=== PATIENT | female | born 1985 | race Caucasian/White ===

== ENCOUNTER 2018-03-27 16:06 | Day surgery (SDC) | payer BC, SELFPAY ==
[2018-03-27 16:52] VITALS: BP 132/82; TEMP 98.5; BMI 50.6
[2018-03-27 17:00] LABS: Amnisure Test No Membranes Rupture (No Rupture)
[2018-03-27 17:01] LABS: Amnisure Internal Control QC ACCEPTABLE (ACCEPTABLE)
--- NOTE | 2018-03-27 18:15 | PDOC.LDHP ---
Labor and Delivery H&P Chief complaint: loss of fluid HPI: 32 y/o G1 at 37w5d, patient of Dr. Srinivasan, presents with LOF x 1 week. Patient reports she has felt like her panties were constantly damp. Has not had any gushes but has needed to use a panty liner. Denies VB, ctx, or decreased FM. ROS neg for HEENT, CV, pulm, GI, , neuro, psych, skin, musculoskeletal, or constitutional symptoms other than mentioned above. OB History Details: First Current complications: none Current medications: pre-chandrakant vitamins Previous surgical history: none Allergies/Adverse Reactions: Allergies Allergy/AdvReac Type Severity Reaction Status Date / Time No Known Allergies Allergy Verified 03/27/18 16:46 Social history: none - Physical Exam Vital signs reviewed and normal: yes General: NAD, resting Lungs: nonlabored breathing Abdomen: gravid Extremeties: no edema FHT: category 1 (135, mod variability, + accels, no decels) [place] contractions every: occasional - Vaginal Exam cm dilated: 0 Effacement: 50% Station: -2 - Assessment 32 y/o G1 at 37w5d with no e/o SROM with neg SSE and neg amnisure. status reassuring with reactive NST. - Plan -: D/c home with precautions. Advised to keep all appointments.
== END 2018-03-27 17:40 | disposition home or self-care (01) ==
LOC: L&D/OP 16:06
PROVIDERS: ATTEND Obstetrics & Gynecology
DX: O99.89 Other specified diseases and conditions complicating pregnancy, childbirth and the puerperium (principal); N89.8 Other specified noninflammatory disorders of vagina; Z3A.37 37 weeks gestation of pregnancy
CPT/HCPCS: 84112; 99283

== ENCOUNTER 2018-04-06 17:30 | Inpatient (IN) | payer BC ==
[~2018-04-06 17:30] MED LIST: Bupivacaine/Epinephrine 0.5% 10 ML VIAL ONE; Lidocaine 2% MPF 10 ML AMP (For Epidural Use) ONE
[2018-04-06 20:23] VITALS: BMI 51.3
[2018-04-06] MEDS ORDERED: Ondansetron PF 4 MG/2 ML Vial IVP PRN (20:23)
[2018-04-06] MEDS ORDERED: HYDROcodone/Acetaminophen 5/325 mg Tablet PO PRN ×2 (20:23)
[2018-04-06] MEDS ORDERED: Ibuprofen 800 MG TAB PO PRN (20:23)
[2018-04-06] MEDS ORDERED: NS w/ Oxytocin 10 units 500 ML IV SCH (20:23)
[2018-04-06] MEDS ORDERED: Docusate 100 MG CAP PO PRN (20:23)
[2018-04-06] MEDS ORDERED: Penicillin G Potassium 5 MILL.UNITS in Sodium Chloride 0.9% 100 ML IVPB SCH (20:23)
[2018-04-06] MEDS ORDERED: NS / Oxytocin 40 units/1000ml 1,000 ML IV PRN (20:23)
[2018-04-06] MEDS ORDERED: Lidocaine 1% (PF) 30 ML VIAL SC PRN (20:23)
[2018-04-06] MEDS ORDERED: Butorphanol Tartrate 1 MG/ML VIAL SLOW IVP PRN (20:23)
[2018-04-06] MEDS ORDERED: Diphenoxylate HCl/Atropine Tablet PO PRN ×2 (20:23)
[2018-04-06] MEDS ORDERED: Promethazine HCl 25 MG/ML VIAL IM PRN (20:23)
[2018-04-06] MEDS ORDERED: Acetaminophen 500 MG TAB PO PRN (20:23)
[2018-04-06] MEDS ORDERED: Misoprostol 200 MCG TAB PR PRN (20:23)
[2018-04-06] MEDS: Lactated Ringer's 1,000 ML IV SCH (21:05)
[2018-04-06 21:16] LABS: Hemoglobin 11.4 g/dL (12.0-16.0); Mean Corpuscular HGB CONC 32.6 g/dL (32.0-36.0); Mean Corpuscular Hemoglobin 29.1 pg (27.0-31.0); Mean Corpuscular Volume 89.5 fL (78.0-98.0); Mean Platelet Volume 7.2 fL (7.4-10.4); Platelet Count 325 thou/uL (130-400); RBC Distribution Width 13.3 % (11.5-14.5); Red Blood Cell (RBC) Count 3.92 mill/uL (4.20-5.40)
[2018-04-06] MEDS: Misoprostol 100 MCG TAB VAG SCH (21:29)
[2018-04-06 21:59] LABS: Syphilis Antibody Nonreactive (Nonreactive); Syphilis Antibody Index 0.04 S/CO (<1.00 Non-Reactive)
[2018-04-06 23:38] LABS: Hep B Surf Ag Non-Reactive S/CO (NonReactive)
[2018-04-07] MEDS: Misoprostol 100 MCG TAB VAG SCH ×2 (00:56→04:13)
[2018-04-07] MEDS: Penicillin G 2.5 MILL.units 2.5 MILL.UNITS in Premix Bag 1 BAG IVPB SCH ×5 (01:47→13:41)
[2018-04-07] MEDS: Lactated Ringer's 1,000 ML IV SCH ×2 (05:30→12:21)
[2018-04-07] MEDS ORDERED: NS w/ Oxytocin 10 units 500 ML ONE (07:56)
[2018-04-07] MEDS: NS w/ Oxytocin 10 units 500 ML IV SCH (08:17)
[2018-04-07] MEDS ORDERED: Fentanyl 4 mcg/Bup 0.1% Cadd 100 ML ONE ×2 (08:24→16:26)
[2018-04-07] MEDS ORDERED: Penicillin G 2.5 MILL.units 50 ML ONE (09:03)
[2018-04-07] MEDS ORDERED: Lidocaine 1.5% w/Epi 1:200K 30 ML VIAL (Epid Use) ONE (09:47)
[2018-04-07] MEDS ORDERED: Ondansetron PF 4 MG/2 ML Vial IVP PRN ×2 (10:08→19:23)
[2018-04-07] MEDS ORDERED: Eucerin (Mineral Oil/Petrolatum,White) 30 gm Jar TOP PRN ×2 (10:08→19:23)
[2018-04-07] MEDS ORDERED: Lactated Ringer's 500 ML IV PRN (10:08)
[2018-04-07] MEDS ORDERED: Acetaminophen 325 MG TAB PO PRN (10:08)
[2018-04-07] MEDS ORDERED: Naloxone HCl 0.4 mg/ml Vial IVP PRN ×4 (10:08→19:23)
[2018-04-07] MEDS ORDERED: diphenhydrAMINE 50 MG/ML VIAL IVP PRN ×2 (10:08→19:23)
[2018-04-07] MEDS ORDERED: Promethazine HCl 25 MG/ML VIAL IM PRN ×2 (10:08→19:23)
[2018-04-07] MEDS ORDERED: ePHEDrine/0.9% NaCl/PF SYRINGE 50 mg/10 ml SLOW IVP PRN (10:08)
[2018-04-07] MEDS ORDERED: Communication Order-Pharmacy FS SCH ×2 (10:15→19:30)
[2018-04-07] MEDS: Fentanyl 4 mcg/Bupivacaine 0.1% Cassette 100 ML EPIDURAL SCH ×2 (12:21→16:29)
[2018-04-07] MEDS ORDERED: Dexamethasone 20 MG/5 ML VIAL ONE (17:25)
[2018-04-07] MEDS ORDERED: Ketorolac Tromethamine 30 MG/ML VIAL ONE ×2 (17:25→18:19)
[2018-04-07] MEDS ORDERED: Ondansetron PF 4 MG/2 ML Vial ONE ×2 (17:25→18:19)
[2018-04-07] MEDS ORDERED: PHENYLEPHRINE-NS 100 MCG/ML 10 ML SYRINGE ONE ×2 (17:25→18:19)
[2018-04-07] MEDS ORDERED: Fentanyl 100 MCG/2 ML VIAL ONE (18:18)
[2018-04-07] MEDS ORDERED: Morphine PF 1 MG/ML SYR ONE (18:18)
[2018-04-07] MEDS ORDERED: Oxytocin 10 UNITS/ML VIAL ONE (18:19)
[2018-04-07] MEDS ORDERED: Dexamethasone 4 mg/ml Vial ONE (18:19)
[2018-04-07] MEDS ORDERED: ePHEDrine/0.9% NaCl/PF SYRINGE 50 mg/10 ml ONE (18:19)
[2018-04-07] MEDS ORDERED: CEFAZOLIN 1 GM VIAL ONE (18:30)
[2018-04-07] MEDS ORDERED: HYDROmorphone 2 MG/ML VIAL SLOW IVP PRN (19:23)
[2018-04-07] MEDS ORDERED: Ondansetron HCl/PF 4 MG/2 ML Vial IVP PRN (19:23)
[2018-04-07] MEDS ORDERED: Naloxone HCl 0.4 mg/ml Vial IV PRN (19:23)
[2018-04-07] MEDS ORDERED: L&D-Morphine 4 MG/ML VIAL SLOW IVP PRN (19:23)
[2018-04-07] MEDS ORDERED: Promethazine HCl 25 MG SUPP PR PRN (19:23)
[2018-04-07] MEDS ORDERED: Meperidine HCl/PF 25 MG/ML VIAL SLOW IVP PRN (19:23)
[2018-04-07] MEDS ORDERED: Ketorolac Tromethamine 30 MG/ML VIAL IVP PRN (19:23)
[2018-04-07] MEDS ORDERED: Ketorolac Tromethamine 30 MG/ML VIAL IVP SCH (19:30)
[2018-04-07] MEDS ORDERED: Lanolin Ointment 7 GM TUBE TOP PRN (22:24)
[2018-04-07] MEDS ORDERED: NS / Oxytocin 40 units/1000ml 1,000 ML IV SCH (22:24)
[2018-04-07] MEDS ORDERED: HYDROcodone/Acetaminophen 5/325 mg Tablet PO PRN ×2 (22:24)
[2018-04-08] MEDS: Lactated Ringer's 1,000 ML IV SCH (04:45)
[2018-04-08 05:58] LABS: Hemoglobin 10.1 g/dL (12.0-16.0); Mean Corpuscular Hemoglobin 29.7 pg (27.0-31.0); Mean Corpuscular Volume 89.8 fL (78.0-98.0); Mean Platelet Volume 7.2 fL (7.4-10.4); Platelet Count 297 thou/uL (130-400); RBC Distribution Width 13.3 % (11.5-14.5); Red Blood Cell (RBC) Count 3.39 mill/uL (4.20-5.40); White Blood Cell (WBC) Count 18.8 thou/uL (4.8-10.8)
[2018-04-08] MEDS: Prenatal Vitamin 1 TAB PO SCH (08:53)
[2018-04-08] MEDS ORDERED: Adacel (T-DAP) 0.5 ML SYRINGE IM ONE (09:00)
[2018-04-08] MEDS: Misoprostol 100 MCG TAB VAG SCH ×2 (09:24→09:25)
[2018-04-08] MEDS: NS w/ Oxytocin 10 units 500 ML IV SCH (09:26)
[2018-04-08] MEDS: Penicillin G 2.5 MILL.units 2.5 MILL.UNITS in Premix Bag 1 BAG IVPB SCH (09:26)
[2018-04-08] MEDS ORDERED: HYDROcodone/Acetaminophen 5/325 mg Tablet PO PRN ×2 (09:33)
[2018-04-08] MEDS: Ibuprofen 100 MG/5 ML UDCUP PO SCH ×2 (14:11→21:25)
[2018-04-08] MEDS: Simethicone Chewable 80 MG TAB PO PRN (21:25)
[2018-04-08] MEDS ORDERED: Ibuprofen 800 MG TAB PO SCH (22:00)
[2018-04-09] MEDS: Ibuprofen 100 MG/5 ML UDCUP PO SCH ×3 (05:33→22:50)
[2018-04-09] MEDS: Simethicone Chewable 80 MG TAB PO PRN ×2 (08:26→21:46)
[2018-04-09] MEDS: Prenatal Vitamin 1 TAB PO SCH (12:28)
[2018-04-10] MEDS: Ibuprofen 100 MG/5 ML UDCUP PO SCH (05:39)
[2018-04-10] MEDS ORDERED: Escitalopram Oxalate 10 mg Tablet PO SCH (09:30)
[2018-04-10] MEDS: Prenatal Vitamin 1 TAB PO SCH (09:41)
[2018-04-10 12:30] VITALS: BP 159/74; TEMP 98.2
[2018-04-11] MEDS ORDERED: Escitalopram Oxalate 10 mg Tablet PO SCH (09:00)
--- NOTE | 2018-04-11 11:23 | OP ---
DATE OF PROCEDURE: 04/07/2018 PRIMARY SURGEON: Dr. Dalton Srinivasan. RESIDENT SURGEON: Dr. Sisi Larios. PROCEDURE PERFORMED: Primary low transverse section. PREOPERATIVE DIAGNOSES: 1. Medical induction of labor for size greater than dates and baby with polycystic kidney. 2. Arrest of dilation and failure to descend. 3. GBS positive. 4. Gastroesophageal reflux disease. 5. Anxiety. 6. Depression. POSTOPERATIVE DIAGNOSES: 1. Primary low-transverse section. 2. Medical induction of labor for size greater than dates and baby with polycystic kidney. 3. Arrest of dilation and failure to descend. 4. GBS positive. 5. Gastroesophageal reflux disease. 6. Anxiety. 7. Depression. ANESTHESIA: Epidural. INDICATIONS: This is a 32-year-old, G1, P0, that presented to Labor and Delivery at 39 and 4 weeks for medically indicated induction of labor for size greater than dates and baby with polycystic kidney. The patient underwent Cytotec induction; however, primary delivery was decided upon as patient had arrest of dilation and failure of descent. PROCEDURE IN DETAIL: After risks, benefits, and alternatives were explained to the patient, she gave informed consent. Preoperative antibiotics included cefazolin 2 g IV. The patient was taken to the operating room, where she was placed in the supine position with a left tilt and prepped and draped in the usual sterile fashion. A Pfannenstiel incision was made with a scalpel. Bovie was then used to carry the incision down to the level of fascia, which was then sharply nicked. The fascial cut was extended bilaterally with Del Angel scissors. The inferior and superior edges of the cut fascial edges were elevated with Khadra clamps, and the underlying rectus muscles were sharply and bluntly dissected free. The recti were divided digitally and retracted manually. The peritoneum was entered bluntly and retracted manually. A bladder blade was placed. Bladder flap was created with Metzenbaum scissors. A low transverse score was made with the scalpel, and the uterus was entered in the midline with the scalpel. A small amount of clear fluid was seen. The hysterotomy was extended manually. The was noted to be vertex and was easily delivered by fundal pressure. Mouth and nares were bulb suctioned. Cord was clamped and cut, and grossly normal female infant was handed to the awaiting nurse. Cord blood was obtained. The placenta was manually extracted and found to be intact with three-vessel cord and discarded. The Doni O was placed and then the uterus was externalized, and the endometrium was curetted with a dry lap. The uterus was closed with a running locking #1 chromic x2. The bladder flap was then brought together using #1 chromic. Following this, hemostasis was noted. The abdomen was irrigated with saline and suctioned free of clots. The uterus was internalized. The Doni O was removed and the hysterotomy was again noted to be hemostatic. Seprafilm was placed on hysterotomy site. The peritoneum was brought together using 2-[address]. The rectus muscles were then brought together using 2-[address] The fascia was closed with running nonlocking 0 Vicryl suture x2. The subcutaneous tissue was irrigated, and bleeders were cauterized. The subcutaneous tissue was brought together using 2-0 plain gut. The skin was then approximated using 4-0 monofilament as well as Dermabond. A pressure dressing was placed postoperatively. All counts were correct. The patient tolerated the procedure well and was taken to the recovery room in stable condition. ESTIMATED BLOOD LOSS 500 mL. COMPLICATIONS: None. SPECIMENS: Cord blood sent to lab for blood type. FINDINGS: Grossly normal female infant with Apgars of 7 and 8 at one and five minutes respectively. Grossly normal placenta with three vessel cord discarded. DRAINS: Martins to gravity, draining clear urine. Job ID: [id number] [facility]
--- NOTE | 2018-04-12 14:02 | OP ---
DATE OF PROCEDURE: 04/07/2018 RESIDENT SURGEON: Sisi Larios. PREOPERATIVE DIAGNOSES: 1. Term intrauterine at 40 weeks. 2. Medical induction of labor. 3. Failure to progress. 4. Arrest of descent dilatation. POSTOPERATIVE DIAGNOSES: 1. Term intrauterine at 40 weeks. 2. Medical induction of labor. 3. Failure to progress. 4. Arrest of descent dilatation. 5. Cephalopelvic disproportion. PROCEDURE PERFORMED: Primary low transverse section. ANESTHESIA: Epidural catheterization. FINDINGS: 1. Baby with known polycystic kidney disease. 2. Arrest of descent dilatation at 4 cm dilated, 80% effaced, -1 station. 3. Progressive caput and molding. 4. Viable female , 7 pounds and 13 ounces, Apgars 7 and 8. 5. Normal uterus, tubes, and ovaries. 6. CPD - narrow outlet and prominent sacrum. COMPLICATIONS: None. SPECIMENS REMOVED: Cord blood. BLOOD LOSS: 800 mL. HISTORY AND INDICATIONS: Mrs. Erick Camejo is a 32-year-old white female, G1, P0 followed in my clinic for obstetric care. The patient's was complicated by a known abnormality with polycystic kidney disease. The patient was sent to maternal medicine at [facility] and also had a Urology consult at [facility] in [place]. Recommendations were to not let the baby go past her due date. Baby was measuring size greater than dates with an estimated weight of approximately 8 pounds. Erick presented to labor and delivery on the evening of 04/06/2018, for Cytotec cervical ripening. She had 3 doses of Cytotec on the morning of 04/07/2018. Amniotomy was performed early that morning and Pitocin induction was initiated. The patient subsequently progressed to 4 cm dilation, 80% effacement, -1 station. There began to be cervical swelling as well as significant caput and moulding. The patient had no descent during the time of induction and made no appreciable cervical traveler changer period of 10 hours. The decision was made to proceed with primary delivery after consent and counseling were performed. Surgical disclosures were signed and placed in the chart. Questions were answered to the patient and family's satisfaction. DESCRIPTION OF PROCEDURE: After through consent and counseling, Mrs. Camejo was taken to the operating room and adequate level of anesthesia was obtained by existing epidural catheterization. The patient was prepped and draped in usual sterile fashion for abdominal surgery. A Martins had previously been placed in the bladder, which was noted to be draining clear urine. Attention was then turned to performing the primary low transverse section. A Pfannenstiel incision was made and carried sharply to the fascia, which was also sharply incised. Depth of subcutaneous tissue was approximately 8 cm. The midline was identified, and the rectus muscles were retracted laterally. Because of the patient's body habitus, an Doni retractor was utilized. The Doni was carefully placed, and the bowel was manipulated out of the operative field. A bladder flap was created on the vesicouterine peritoneum, and the bladder blade was placed. A low transverse incision was made on the well developed lower uterine segment. Upon entering the amniotic sac, scant amount of clear amniotic fluid was visualized. The infant was noted to be vertex presentation in the occiput transverse position still high in the pelvis. Head was delivered, and a significant amount of caput and moulding was appreciated. Shoulders and body were then delivered in an atraumatic fashion. The cord was doubly clamped and cut. The was handed to the Pediatric Team in attendance for the delivery. The infant was a vigorous viable female with Apgars of 7 and 8 obtained at one and five minutes respectively. Shortly after delivery, the baby was returned to the mother for [id number] contact. Cord blood was obtained. The placenta was manually removed from the uterus. The uterus was exteriorized, and good tone was noted. The uterine cavity was cleared of any remaining clot and fluid. The low-transverse incision was closed with a running locking ligature of #1 chronic. Several [id number] ligatures of #1 chromic were placed to facilitate strength and hemostasis. The vesicouterine peritoneum was reapproximated to the lower segment with running ligature of 3-0 Monocryl suture. Seprafilm was applied to the low-transverse incision and to the anterior aspect of the uterus for adhesion prevention. Good tone and hemostasis were noted. The posterior cul-de-sac and gutters were cleared of clot and fluid. The Doni retractor was removed. The peritoneum was closed with a running ligature of 2-0 Vicryl. The rectus muscles were reapproximated in the midline with interrupted ligatures of 2-0 Vicryl and with #1 chromic suture. The subcutaneous tissue was closed with multiple layers of 2-0 plain suture. The skin was then closed with subcuticular stitch of 4-0 Monocryl. A pressure dressing and ice packs were subsequently placed. Lap, sponge, and needle counts were correct x3. Estimated blood loss in the surgical procedure was approximately 800 mL. QBL was 782 mL. The patient was taken to the recovery room in good condition. Immediately following the surgery, the patient and family were made aware of the surgical procedure and operative findings. Questions were answered to the patient's satisfaction. We discussed in detail the findings and indications for the delivery including a diagnosis of cephalopelvic disproportion. Questions were answered to the patient and family's satisfaction. Job ID: [id number]
== END 2018-04-10 14:10 | disposition home or self-care (01) | DRG 788 ==
LOC: L&D 20:03 → 3SW 04-07 23:03
PROVIDERS: ADMIT Obstetrics & Gynecology; ATTEND Obstetrics & Gynecology
PROC: 10D00Z1 Extraction of Products of Conception, Low, Open Approach (ICD-10-PCS; principal; 2018-04-07)
PROC: 3E033VJ Introduction of Other Hormone into Peripheral Vein, Percutaneous Approach (ICD-10-PCS; 2018-04-07)
PROC: 10907ZC Drainage of Amniotic Fluid, Therapeutic from Products of Conception, Via Natural or Artificial Opening (ICD-10-PCS; 2018-04-07)
PROC: 4A1HXCZ Monitoring of Products of Conception, Cardiac Rate, External Approach (ICD-10-PCS; 2018-04-07)
PROC: 4A1HXFZ Monitoring of Products of Conception, Cardiac Rhythm, External Approach (ICD-10-PCS; 2018-04-07)
DX: O62.0 Primary inadequate contractions (principal); O61.0 Failed medical induction of labor; Z37.0 Single live birth; O26.843 Uterine size-date discrepancy, third trimester; Z3A.40 40 weeks gestation of pregnancy; O35.8XX0 Maternal care for other (suspected) fetal abnormality and damage, not applicable or unspecified; O99.824 Streptococcus B carrier state complicating childbirth; O99.62 Diseases of the digestive system complicating childbirth; O99.344 Other mental disorders complicating childbirth; F41.8 Other specified anxiety disorders; Z79.899 Other long term (current) drug therapy
CPT/HCPCS: 36415; 51702; 85027; 86780; 86850; 86900; 86901; 87340; J0595; J0690; J1100; J1885; J2001; J2274; J2405; J2540; J2590; J3010; J3490; J7050

== ENCOUNTER 2019-09-21 08:55 | Outpatient (CLI) | payer BC, OTHER ==
[2019-09-22 12:52] LABS: SARS-CoV-2 MS2 Positive; SARS-CoV-2 N Gene Negative; SARS-CoV-2 S Gene Negative; SARS-CoV-2 orf1ab Negative
== END 2019-09-21 08:56 | disposition home or self-care (01) ==
LOC: SCSLAB 08:55
PROVIDERS: ATTEND Obstetrics & Gynecology
DX: Z01.812 Encounter for preprocedural laboratory examination (principal); Z11.59 Encounter for screening for other viral diseases
CPT/HCPCS: 87635; U0003

== ENCOUNTER 2019-09-25 05:46 | Inpatient (IN) | payer BC ==
[2019-09-25] MEDS ORDERED: hydrALAZINE 20 MG/ML VIAL SLOW IVP PRN ×2 (06:02→09:25)
[2019-09-25] MEDS ORDERED: Promethazine HCl 25 MG/ML VIAL IM PRN ×2 (06:02→07:27)
[2019-09-25] MEDS ORDERED: Ondansetron PF 4 MG/2 ML Vial IVP PRN ×3 (06:02→09:25)
[2019-09-25] MEDS ORDERED: Bicitra 30 ML UDCUP PO SCH (06:02)
[2019-09-25] MEDS ORDERED: CEFAZOLIN 2 GM in Premix Bag 1 BAG IVPB SCH (06:02)
[2019-09-25] MEDS ORDERED: Lactated Ringer's 1,000 ML IV SCH (06:02)
[2019-09-25 06:07] VITALS: BMI 54.8
[2019-09-25 06:30] LABS: Hemoglobin 10.7 g/dL (12.0-16.0); Mean Corpuscular HGB CONC 32.8 g/dL (32.0-36.0); Mean Corpuscular Hemoglobin 28.7 pg (27.0-31.0); Mean Corpuscular Volume 87.6 fL (78.0-98.0); Mean Platelet Volume 7.5 fL (7.4-10.4); Platelet Count 328 thou/uL (130-400); Red Blood Cell (RBC) Count 3.73 mill/uL (4.20-5.40); White Blood Cell (WBC) Count 13.3 thou/uL (4.8-10.8)
[2019-09-25] MEDS ORDERED: Oxytocin 10 UNITS/ML VIAL ONE ×2 (06:54→08:39)
[2019-09-25] MEDS ORDERED: MORPHINE 5 MG/10 ML PF VIAL ONE (06:54)
[2019-09-25] MEDS ORDERED: Ketorolac Tromethamine 30 MG/ML VIAL ONE (06:55)
[2019-09-25] MEDS ORDERED: PHENYLEPHRINE-NS 100 MCG/ML 10 ML SYRINGE ONE ×2 (06:55→08:38)
[2019-09-25] MEDS ORDERED: EPHEDRINE 25 MG/5 ML SYRINGE ONE (06:55)
[2019-09-25] MEDS ORDERED: Ondansetron PF 4 MG/2 ML Vial ONE (06:55)
[2019-09-25 07:10] LABS: Syphilis Antibody Nonreactive (Nonreactive); Syphilis Antibody Index 0.04 S/CO (<1.00 Non-Reactive)
[2019-09-25 07:12] LABS: HBSAg Index 0.09 S/CO (0-0.99); Hep B Surf Ag Non-Reactive S/CO (NonReactive)
[2019-09-25] MEDS ORDERED: Ondansetron HCl/PF 4 MG/2 ML Vial IVP PRN (07:27)
[2019-09-25] MEDS ORDERED: Promethazine HCl 25 MG SUPP PR PRN (07:27)
[2019-09-25] MEDS ORDERED: L&D-Morphine 4 MG/ML VIAL SLOW IVP PRN (07:27)
[2019-09-25] MEDS ORDERED: Naloxone HCl 0.4 mg/ml Vial IVP PRN ×2 (07:27)
[2019-09-25] MEDS ORDERED: diphenhydrAMINE 50 MG/ML VIAL IVP PRN (07:27)
[2019-09-25] MEDS ORDERED: Naloxone HCl 0.4 mg/ml Vial IV PRN (07:27)
[2019-09-25] MEDS ORDERED: HYDROmorphone 2 MG/ML VIAL SLOW IVP PRN (07:27)
[2019-09-25] MEDS ORDERED: Meperidine HCl/PF 25 MG/ML VIAL SLOW IVP PRN (07:27)
[2019-09-25] MEDS ORDERED: Communication Order-Pharmacy FS SCH (07:30)
[2019-09-25] MEDS ORDERED: Lidocaine 1% PF 5 ML VIAL ONE (07:55)
[2019-09-25] MEDS ORDERED: Bisacodyl 10 MG SUPP PR PRN (09:25)
[2019-09-25] MEDS ORDERED: Misoprostol 200 MCG TAB PR PRN (09:25)
[2019-09-25] MEDS ORDERED: Simethicone Chewable 80 MG TAB PO PRN (09:25)
[2019-09-25] MEDS ORDERED: Adacel (T-DAP) 0.5 ML SYRINGE IM ONE (09:25)
[2019-09-25] MEDS ORDERED: diphenhydrAMINE 25 MG CAP PO PRN (09:25)
[2019-09-25] MEDS ORDERED: Acetaminophen 325 MG TAB PO PRN (09:25)
[2019-09-25] MEDS ORDERED: Lanolin Ointment 7 GM TUBE TOP PRN (09:25)
[2019-09-25] MEDS ORDERED: NS / Oxytocin 40 units/1000ml 1,000 ML IV SCH (09:30)
[2019-09-25] MEDS: Lactated Ringer's 1,000 ML IV SCH (18:07)
[2019-09-25] MEDS: Ferrous Sulfate 325 MG TAB PO SCH (18:07)
[2019-09-25] MEDS ORDERED: HYDROcodone/Acetaminophen 5/325 mg Tablet PO PRN (19:30)
[2019-09-25] MEDS ORDERED: Meperidine HCl/PF 25 MG/ML VIAL IM PRN (19:30)
[2019-09-25] MEDS: Ketorolac Tromethamine 30 MG/ML VIAL IVP PRN (21:34)
[2019-09-26 05:59] LABS: Hemoglobin 8.7 g/dL (12.0-16.0); Mean Corpuscular HGB CONC 33.3 g/dL (32.0-36.0); Mean Corpuscular Hemoglobin 29.8 pg (27.0-31.0); Mean Corpuscular Volume 89.5 fL (78.0-98.0); Mean Platelet Volume 7.7 fL (7.4-10.4); Platelet Count 240 thou/uL (130-400); RBC Distribution Width 13.1 % (11.5-14.5); Red Blood Cell (RBC) Count 2.94 mill/uL (4.20-5.40); White Blood Cell (WBC) Count 10.6 thou/uL (4.8-10.8)
[2019-09-26] MEDS: Ketorolac Tromethamine 30 MG/ML VIAL IVP PRN (06:28)
[2019-09-26] MEDS: Lactated Ringer's 1,000 ML IV SCH ×3 (12:02→17:38)
[2019-09-26] MEDS: Docusate Calcium (SURFAK) 240 MG CAP PO SCH ×2 (12:03)
[2019-09-26] MEDS: Prenatal Vitamin 1 TAB PO SCH (12:04)
[2019-09-26] MEDS: Ferrous Sulfate 325 MG TAB PO SCH ×2 (12:04→17:41)
[2019-09-26] MEDS ORDERED: Ibuprofen 800 MG TAB PO SCH (14:00)
[2019-09-26] MEDS ORDERED: Acetaminophen 650 MG/20.3 ML UDCUP PO PRN (20:35)
[2019-09-26] MEDS ORDERED: diphenhydrAMINE 12.5 MG/5 ML UDCUP PO PRN (20:36)
[2019-09-26] MEDS: Ibuprofen 100 MG/5 ML UDCUP PO SCH (22:41)
[2019-09-26] MEDS: Docusate Sodium 100 MG/10 ML UDCUP PO SCH (22:41)
[2019-09-27] MEDS: Lactated Ringer's 1,000 ML IV SCH ×2 (02:40→07:41)
[2019-09-27] MEDS: Ibuprofen 100 MG/5 ML UDCUP PO SCH (05:56)
[2019-09-27 08:33] VITALS: BP 120/57; TEMP 97.5
[2019-09-27] MEDS: Prenatal Vitamin 1 TAB PO SCH (08:52)
[2019-09-27] MEDS: Docusate Sodium 100 MG/10 ML UDCUP PO SCH (09:20)
--- NOTE | 2019-09-27 13:38 | OP ---
DATE OF PROCEDURE: 09/25/2019 RESIDENT SURGEON: Kyree Aviles DO PREOPERATIVE DIAGNOSES: 1. Term intrauterine at 39 weeks. 2. Prior section. 3. Declines trial of labor. 4. BMI greater than 50. POSTOPERATIVE DIAGNOSES: 1. Term intrauterine at 39 weeks. 2. Prior section. 3. Declines trial of labor. 4. BMI greater than 50. PROCEDURE PERFORMED: Repeat low-transverse section. ANESTHESIA: Spinal catheterization. FINDINGS: 1. Viable female infant, 7 pounds 0 ounces. Apgars 8 and 8. 2. Minimal scarring and adhesions secondary to previous adhesion prevention measures. 3. Normal uterus, tubes, and ovaries. COMPLICATIONS: None. SPECIMENS REMOVED: Cord blood. ESTIMATED BLOOD LOSS: Approximately 500 mL and then beside that (QBL equal 495 mL). DESCRIPTION OF PROCEDURE: After thorough consent and counseling, Mrs. Camejo was taken to operating room and adequate level of anesthesia was obtained via spinal catheterization. The patient was prepped and draped in usual sterile fashion for abdominal surgery. A Martins was placed in the bladder, which noted to be draining clear urine. Attention was then turned to performing the repeat low-transverse section. Team time-out was performed per protocol. A Pfannenstiel incision was made and the old scar was excised. The incision was carried sharply to the fascia, which was also sharply incised. The amount of adipose tissue from the skin to the fascial layer was 7 to 8 cm. The midline was identified and the rectus muscles were retracted laterally. The abdominal peritoneal cavity was entered with usual safeguard carried out. A retractor was placed and a bladder flap was created on the vesicouterine peritoneum. A bladder blade was then placed. A low-transverse incision was then made on the well-developed lower uterine segment. Upon entering the amniotic sac, copious amount of clear amniotic fluid was identified. The was noted to be vertex presentation in the occiput transverse position, still high in the pelvis. Head was delivered and baby was bulb suctioned on the abdomen. Shoulders and body were then delivered in an atraumatic fashion. The cord was doubly clamped and cut and the infant was handed to the Neonatology Team in attendance for the delivery. The infant was a viable female weighing 7 pounds with Apgars of 8 and 8 obtained at one and five minutes respectively. Because of respiratory depression, the baby was taken to the nursery for oxygen supplementation for a short period of time. This was discussed with the patient by Dr. Gonzalez, who was the basket braider in attendance for the delivery. The placenta was manually removed from the uterus. The uterus was exteriorized and good tone was noted. The uterine cavity was cleared of remaining clot and fluid. The low-transverse incision was closed with a running locking ligature of #1 chromic. A second imbricating layer was placed to facilitate strength and hemostasis. The vesicouterine peritoneum was reapproximated with a running ligature of 2-0 Monocryl suture. Good tone and hemostasis were once again noted. The posterior cul-de-sac and gutters were cleared of clot and fluid. The uterus, fallopian tubes, and ovaries were inspected and noted to be normal. There was minimal scarring and adhesions secondary to previous adhesion prevention measures. Seprafilm was then applied to the low-transverse incision and the anterior aspect of the uterus. The uterus was returned to the abdomen. Good tone and hemostasis were again noted. Lap, sponge, and needle counts were correct. The peritoneum was closed with a running ligature of 2-0 Vicryl. The rectus muscles were reapproximated in the midline with interrupted ligatures of 2-0 Vicryl and 0 chromic suture. The fascia was then closed with 2 ligatures of 0 Vicryl suture, which were tied in the midline. The deep incision was then irrigated with 2 L of warm sterile saline. Hemostasis was obtained with Bovie cauterization. The subcutaneous tissue was closed in multiple layers using 2-0 plain suture for ligature. The skin was then closed with subcuticular stitch of 4-0 Monocryl and dressed with Dermabond x3. Lap, sponge, and needle counts were correct x3. The estimated blood loss during the surgical procedure was approximately 500 mL (QBL equal 495 mL). The patient was taken to the recovery room in good condition. Immediately following surgery, the patient and family were made aware of surgical procedure and operative findings. Questions answered to their satisfaction. Job ID: [id number]
== END 2019-09-27 11:40 | disposition home or self-care (01) | DRG 788 ==
LOC: L&D 05:46 → 3SW 11:49
PROVIDERS: ADMIT Obstetrics & Gynecology; ATTEND Obstetrics & Gynecology
PROC: 10D00Z1 Extraction of Products of Conception, Low, Open Approach (ICD-10-PCS; principal; 2019-09-25)
DX: O34.211 Maternal care for low transverse scar from previous cesarean delivery (principal); Z3A.39 39 weeks gestation of pregnancy; Z37.0 Single live birth
CPT/HCPCS: 36415; 51702; 85027; 86780; 86850; 86900; 86901; 87340; J0690; J1885; J2274; J2405; J2590